=== PATIENT | female | born 1945 | race Caucasian/White ===

== ENCOUNTER 2022-11-30 12:21 | Inpatient (IN) | payer MEDICARE, OTHER ==
[~2022-11-30] VITALS: Ht 157.5 cm; Wt 45.8 kg
[2022-11-30 12:55] LABS: HEMATOCRIT 38.3 % (31.2-41.9); MEAN CORPUSCULAR HEMOGLOBIN 30.8 uug (24.7-32.8); MEAN CORPUSCULAR VOLUME 93.5 fL (75.5-95.3); PLATELET COUNT (AUTO) 298 K/uL (179-408)
[2022-11-30] MEDS ORDERED: CLOP75TA15 PO (13:01)
[2022-11-30] MEDS ORDERED: ALPR0.5T8 PO (13:01)
[2022-11-30] MEDS ORDERED: VITAMIN D3 PO (13:01)
[2022-11-30] MEDS ORDERED: CARV3.122 PO (13:01)
[2022-11-30] MEDS ORDERED: MESA800T9 PO (13:01)
[2022-11-30] MEDS ORDERED: SIMV-49 PO (13:01)
[2022-11-30] MEDS ORDERED: RANO10003 PO (13:01)
[2022-11-30 13:19] LABS: ETHANOL < 3 MG/DL (0-0)
[2022-11-30 13:21] LABS: ALANINE AMINOTRANSFERASE 16 U/L (14-59); ALKALINE PHOSPHATASE 63 U/L (50-136); ASPARTATE AMINOTRANSFERASE 15 U/L (15-37); BILIRUBIN,DIRECT 0.1 mg/dL (0.0-0.2); BILIRUBIN,TOTAL 0.4 mg/dL (0.2-1.0); CARBON DIOXIDE 30 mmol/L (21-32); CHLORIDE 106 mmol/L (98-107); CREATININE 0.8 mg/dL (0.6-1.3); GLUCOSE 123 mg/dL (74-106); POTASSIUM 4.5 mmol/L (3.5-5.1); TOTAL PROTEIN, SERUM 7.4 g/dL (6.4-8.2); UREA NITROGEN, BLOOD 19 mg/dL (7-18)
[2022-11-30 14:19] LABS: *BLOOD, URINE NEGATIVE (NEGATIVE); *CLARITY,URINE CLEAR (CLEAR); *COLOR,URINE AMBER (YELLOW); *KETONES,URINE 1+ (NEGATIVE); *UROBILINOGEN,URINE 0.2 E.U./dl (NORMAL); LEUKOCYTE ESTERASE ,URINE NEGATIVE (NEGATIVE); NITRITE, URINE NEGATIVE (NEGATIVE); PH,URINE 5.5 (5.0-8.0); UGLUCOSE NEGATIVE (NEGATIVE)
[2022-11-30 14:34] LABS: *AMPHETAMINE, URINE NEGATIVE (NEGATIVE); *CANNABINOID, URINE NEGATIVE (NEGATIVE); *COCCAINE, URINE NEGATIVE (NEGATIVE); *PHENCYCLIDINE SCREEN,URINE NEGATIVE (NEGATIVE)
[2022-11-30 15:01] LABS: *BILIRUBIN,URIN 2+ (NEGATIVE)
[2022-11-30 15:08] LABS: ACETAMINOPHEN < 2.0 ug/mL (10-30)
[2022-11-30] MEDS ORDERED: IV NORMAL SALINE 1000 ML BAG IV ONE (15:15)
[2022-11-30 17:26] LABS: RBC,URINE 0-3 /HPF (0-3); WBC,URINE 0-3 /HPF (0-3)
[2022-11-30 18:52] VITALS: BP 151/77
[2022-11-30 20:27] VITALS: BP 119/70
[2022-12-01] MEDS ORDERED: ACETAMINOPHEN 650 MG SUPP.RECT RC PRN (00:30)
[2022-12-01] MEDS ORDERED: MELATONIN 3 MG TABLET PO PRN (00:30)
[2022-12-01] MEDS ORDERED: MAGNESIUM HYDROXIDE 30 ML LIQUID UDC PO PRN (00:30)
[2022-12-01] MEDS ORDERED: ONDANSETRON 4 MG/2 ML VIAL IV PRN (00:30)
[2022-12-01 04:50] VITALS: BP 135/82
[2022-12-01] MEDS: CLOPIDOGREL 75 MG TABLET PO SCH (08:20)
[2022-12-01] MEDS: CARVEDILOL 3.125 MG TABLET PO SCH (08:20)
[2022-12-01] MEDS ORDERED: VITAMIN D3 PO SCH (09:00)
[2022-12-01] MEDS: MESALAMINE 400 MG CAPSULE.DR PO SCH (09:02)
[2022-12-01 11:54] VITALS: BP 109/69
[2022-12-01] MEDS ORDERED: CHOL200059 PO (13:46)
[2022-12-01] MEDS: CHOLECALCIFEROL 1,000 UNIT TABLET PO SCH (15:33)
[2022-12-01 16:00] VITALS: BP 120/60
[2022-12-01 20:00] VITALS: BP 122/68
[2022-12-01] MEDS: RANOLAZINE 500 MG TAB.ER.12H PO SCH (21:15)
[2022-12-01] MEDS: SIMVASTATIN 40 MG TABLET PO SCH (21:15)
[2022-12-01] MEDS: ALPRAZOLAM 0.5 MG TABLET PO SCH (21:15)
[2022-12-02 04:00] VITALS: BP 118/72
[2022-12-02 06:59] LABS: HEMATOCRIT 38.9 % (31.2-41.9); MEAN CORPUSCULAR HEMOGLOBIN 30.8 uug (24.7-32.8); MEAN CORPUSCULAR VOLUME 93.2 fL (75.5-95.3); PLATELET COUNT (AUTO) 249 K/uL (179-408)
[2022-12-02 08:34] LABS: CARBON DIOXIDE 29 mmol/L (21-32); CHLORIDE 106 mmol/L (98-107); CREATININE 0.8 mg/dL (0.6-1.3); GLUCOSE 104 mg/dL (74-106); POTASSIUM 4.6 mmol/L (3.5-5.1); UREA NITROGEN, BLOOD 29 mg/dL (7-18)
[2022-12-02 08:35] LABS: MAGNESIUM 1.8 mg/dL (1.8-2.4); PHOSPHOROUS 4.2 mg/dL (2.5-4.9)
[2022-12-02 08:46] LABS: THYROID STIMULATING HORMONE 0.933 mIU/mL (0.358-3.740)
[2022-12-02 09:13] LABS: IRON, SERUM 54 ug/dL (50-175)
[2022-12-02] MEDS: CLOPIDOGREL 75 MG TABLET PO SCH (09:22)
[2022-12-02] MEDS: CHOLECALCIFEROL 1,000 UNIT TABLET PO SCH (09:22)
[2022-12-02] MEDS: MESALAMINE 400 MG CAPSULE.DR PO SCH (09:22)
[2022-12-02] MEDS: CARVEDILOL 3.125 MG TABLET PO SCH (09:23)
[2022-12-02] MEDS ORDERED: NICO10CA IH (09:33)
[2022-12-02 11:51] VITALS: BP 110/65
[2022-12-02] MEDS ORDERED: ONDA4VIA23 PO (14:33)
[2022-12-02] MEDS ORDERED: ACET650S13 RC (14:33)
[2022-12-02] MEDS ORDERED: MAGN400O6 PO (14:33)
[2022-12-02] MEDS ORDERED: MELA3TAB41 PO (14:33)
[2022-12-02 15:54] VITALS: BP 125/67
[2022-12-02 20:00] VITALS: BP 123/64
[2022-12-02] MEDS: ALPRAZOLAM 0.5 MG TABLET PO SCH (20:09)
[2022-12-02] MEDS: SIMVASTATIN 40 MG TABLET PO SCH (20:10)
[2022-12-02] MEDS: RANOLAZINE 500 MG TAB.ER.12H PO SCH (20:10)
[2022-12-03 04:00] VITALS: BP 107/64
[2022-12-03] MEDS: MESALAMINE 400 MG CAPSULE.DR PO SCH (08:14)
[2022-12-03] MEDS: CHOLECALCIFEROL 1,000 UNIT TABLET PO SCH (08:14)
[2022-12-03] MEDS: CLOPIDOGREL 75 MG TABLET PO SCH (08:15)
[2022-12-03] MEDS: CARVEDILOL 3.125 MG TABLET PO SCH (08:15)
[2022-12-03 11:14] VITALS: BP 137/60
== END 2022-12-03 15:59 | DRG 92 ==
LOC: ER 12:21 → MEDSURG3 17:12
PROVIDERS: ADMIT Internal Medicine; ATTEND Internal Medicine
PROC: 05HC33Z Insertion of Infusion Device into Left Basilic Vein, Percutaneous Approach (ICD-10-PCS; principal; 2022-11-30)
DX: R27.0 Ataxia, unspecified (principal); A69.20 Lyme disease, unspecified; K50.90 Crohn's disease, unspecified, without complications; G40.802 Other epilepsy, not intractable, without status epilepticus; E86.0 Dehydration; R53.1 Weakness; S89.91XS Unspecified injury of right lower leg, sequela; X58.XXXS Exposure to other specified factors, sequela; Z59.02 Unsheltered homelessness; Z91.81 History of falling; I10 Essential (primary) hypertension; M79.7 Fibromyalgia; I25.2 Old myocardial infarction; I25.10 Atherosclerotic heart disease of native coronary artery without angina pectoris; M06.9 Rheumatoid arthritis, unspecified; F43.10 Post-traumatic stress disorder, unspecified; Z86.73 Personal history of transient ischemic attack (TIA), and cerebral infarction without residual deficits; Z20.822 Contact with and (suspected) exposure to COVID-19; Z79.899 Other long term (current) drug therapy; Z87.440 Personal history of urinary (tract) infections; Z95.5 Presence of coronary angioplasty implant and graft; Z87.891 Personal history of nicotine dependence; Z90.710 Acquired absence of both cervix and uterus; Z79.02 Long term (current) use of antithrombotics/antiplatelets; M47.892 Other spondylosis, cervical region
CPT/HCPCS: 36415; 71045; 83550; 83735; 84100; 84443; 85025; 93005; 93880; A4663; G0378; G0480

== ENCOUNTER 2023-06-14 11:07 | Inpatient (IN) | payer MEDICARE, OTHER ==
[~2023-06-14] VITALS: Ht 157.5 cm; Wt 48.1 kg
[~2023-06-14 11:07] MED LIST: ACET650S13 RC; ALPR0.5T8 PO; CARV3.122 PO; CHOL200059 PO; CLOP75TA15 PO; MAGN400O6 PO; MELA3TAB41 PO; MESA800T9 PO; NICO10CA IH; ONDA4VIA23 PO; RANO10003 PO; SIMV-49 PO
[2023-06-14 11:41] LABS: BASOPHILS % (AUTO) 0.4 % (0.0-2.0); EOSINOPHILS # (AUTO) 0.1 K/uL (0.0-0.7); EOSINOPHILS % (AUTO) 2.4 % (0.0-7.0); HEMOGLOBIN 12.6 g/dL (10.9-14.3); LYMPHOCYTES # (AUTO) 1.3 K/uL (0.8-4.8); LYMPHOCYTES % (AUTO) 21.4 % (20.5-51.5); MEAN CORPUSCULAR HEMOGLOBIN 31.1 uug (24.7-32.8); MEAN CORPUSCULAR HGB CONC 34 g/dL (32.3-35.6); MEAN CORPUSCULAR VOLUME 91.4 fL (75.5-95.3); MONOCYTES # (AUTO) 0.5 K/uL (0.1-1.30); MONOCYTES % (AUTO) 8.8 % (0.0-11.0); NEUTROPHILS # (AUTO) 4.1 K/uL (1.8-8.9); PLATELET COUNT (AUTO) 219 K/uL (179-408); RED BLOOD CELL COUNT(AUTO) 4.05 MIL/uL (3.63-4.92); RED CELL DISTRIBUTION WIDTH 13.3 % (12.3-17.7); WHITE BLOOD COUNT (AUTO) 6.1 K/uL (3.8-11.8)
[2023-06-14 11:43] LABS: DIFFERENTIAL COMMENT 1
[2023-06-14 11:51] LABS: CARBON DIOXIDE 27 mmol/L (21-32); CHLORIDE 102 mmol/L (98-107); CREATININE 0.8 mg/dL (0.6-1.3); GLUCOSE 83 mg/dL (74-106); POTASSIUM 3.8 mmol/L (3.5-5.1); SODIUM SERUM 136 mmol/L (136-145); UREA NITROGEN, BLOOD 16 mg/dL (7-18)
[2023-06-14 12:00] LABS: ALANINE AMINOTRANSFERASE 14 U/L (14-59); ALBUMIN 4.1 g/dL (3.4-5.0); ALKALINE PHOSPHATASE 63 U/L (50-136); ASPARTATE AMINOTRANSFERASE 12 U/L (15-37); BILIRUBIN,DIRECT 0.2 mg/dL (0.0-0.2); BILIRUBIN,TOTAL 0.7 mg/dL (0.2-1.0); TOTAL PROTEIN, SERUM 7.1 g/dL (6.4-8.2)
[2023-06-14] MEDS ORDERED: CYCL30DR EACHEYE (12:46)
[2023-06-14 13:47] LABS: *BILIRUBIN,URIN NEGATIVE (NEGATIVE); *BLOOD, URINE 2+ (NEGATIVE); *CLARITY,URINE SLIGHTLY CLOUDY (CLEAR); *COLOR,URINE YELLOW (YELLOW); *KETONES,URINE 1+ (NEGATIVE); *PROTEIN,URINE NEGATIVE (NEGATIVE); *UROBILINOGEN,URINE 0.2 E.U./dl (NORMAL); LEUKOCYTE ESTERASE ,URINE 1+ (NEGATIVE); NITRITE, URINE POSITIVE (NEGATIVE); PH,URINE 5.5 (5.0-8.0); UGLUCOSE NEGATIVE (NEGATIVE)
[2023-06-14] MEDS ORDERED: NITROFURANTOIN/NITROFURAN MAC 100 MG CAPSULE PO ONE ×2 (14:15→14:21)
[2023-06-14 14:19] LABS: BACTERIA,URINE MANY /HPF (NONE SEEN); SQUAMOUS EPITHELIAL CELL,UR MODERATE /HPF (NONE SEEN); WBC,URINE 50-80 /HPF (0-3)
[2023-06-14] MEDS ORDERED: ONDANSETRON 4 MG/2 ML VIAL IV PRN (14:30)
[2023-06-14] MEDS ORDERED: MORPHINE SULFATE 2 MG/1 ML DISP.SYRIN IVP PRN (14:30)
[2023-06-14] MEDS ORDERED: hydrALAZINE HCL 20 MG/1 ML VIAL IV PRN (14:30)
[2023-06-14] MEDS ORDERED: ALPRAZOLAM 0.5 MG TABLET ONE (21:20)
[2023-06-14] MEDS: ALPRAZOLAM 0.5 MG TABLET PO PRN (21:24)
[2023-06-14] MEDS ORDERED: SEVELAMER CARBONATE 800 MG TABLET PO ONE (21:34)
[2023-06-14] MEDS: SIMVASTATIN 40 MG TABLET PO SCH (21:55)
[2023-06-14] MEDS: RANOLAZINE 500 MG TAB.ER.12H PO SCH (21:55)
[2023-06-15] MEDS ORDERED: CEFEPIME HCL 1 G VIAL ONE ×2 (01:41→13:01)
[2023-06-15] MEDS: CEFEPIME HCL 1 G in IV DEXTROSE 5% 50 ML IV SCH ×4 (06:03→22:23)
[2023-06-15 06:47] LABS: BASOPHILS % (AUTO) 0.5 % (0.0-2.0); EOSINOPHILS # (AUTO) 0.2 K/uL (0.0-0.7); EOSINOPHILS % (AUTO) 3.5 % (0.0-7.0); HEMATOCRIT 36.9 % (31.2-41.9); HEMOGLOBIN 12.7 g/dL (10.9-14.3); LYMPHOCYTES # (AUTO) 1.2 K/uL (0.8-4.8); LYMPHOCYTES % (AUTO) 17.6 % (20.5-51.5); MEAN CORPUSCULAR HEMOGLOBIN 31.7 uug (24.7-32.8); MEAN CORPUSCULAR HGB CONC 35 g/dL (32.3-35.6); MEAN CORPUSCULAR VOLUME 91.9 fL (75.5-95.3); MONOCYTES # (AUTO) 0.7 K/uL (0.1-1.30); MONOCYTES % (AUTO) 10.5 % (0.0-11.0); NEUTROPHILS # (AUTO) 4.5 K/uL (1.8-8.9); NEUTROPHILS % (AUTO) 67.9 % (38.5-71.5); PLATELET COUNT (AUTO) 216 K/uL (179-408); RED BLOOD CELL COUNT(AUTO) 4.02 MIL/uL (3.63-4.92); RED CELL DISTRIBUTION WIDTH 13.3 % (12.3-17.7); WHITE BLOOD COUNT (AUTO) 6.6 K/uL (3.8-11.8)
[2023-06-15 07:04] LABS: DIFFERENTIAL COMMENT 1
[2023-06-15 07:12] LABS: ALANINE AMINOTRANSFERASE 21 U/L (14-59); ALKALINE PHOSPHATASE 64 U/L (50-136); ASPARTATE AMINOTRANSFERASE 18 U/L (15-37); BILIRUBIN,TOTAL 0.7 mg/dL (0.2-1.0); CALCIUM 9.3 mg/dL (8.5-10.1); CARBON DIOXIDE 31 mmol/L (21-32); CHLORIDE 104 mmol/L (98-107); CREATININE 0.9 mg/dL (0.6-1.3); GLUCOSE 93 mg/dL (74-106); PHOSPHOROUS 3.9 mg/dL (2.5-4.9); POTASSIUM 3.7 mmol/L (3.5-5.1); SODIUM SERUM 142 mmol/L (136-145); TOTAL PROTEIN, SERUM 7.1 g/dL (6.4-8.2); UREA NITROGEN, BLOOD 18 mg/dL (7-18)
[2023-06-15] MEDS ORDERED: CLOPIDOGREL 75 MG TABLET ONE (08:30)
[2023-06-15] MEDS ORDERED: CHOLECALCIFEROL 1,000 UNIT TABLET ONE (08:31)
[2023-06-15] MEDS ORDERED: MESALAMINE 400 MG CAPSULE.DR PO ONE (08:31)
[2023-06-15] MEDS ORDERED: CARVEDILOL 3.125 MG TABLET ONE (08:31)
[2023-06-15] MEDS ORDERED: HEPARIN SODIUM,PORCINE 5,000 UNITS/ML VIAL ONE (08:41)
[2023-06-15] MEDS: POLYVINYL ALCOHOL OPHT DROPS 15 ML BOTTLE EACHEYE SCH ×2 (08:53→16:16)
[2023-06-15] MEDS: CARVEDILOL 3.125 MG TABLET PO SCH (08:54)
[2023-06-15] MEDS: CHOLECALCIFEROL 1,000 UNIT TABLET PO SCH (08:54)
[2023-06-15] MEDS: MESALAMINE 400 MG CAPSULE.DR PO SCH (08:54)
[2023-06-15] MEDS ORDERED: CARVEDILOL 3.125 MG TABLET PO SCH (09:00)
[2023-06-15] MEDS ORDERED: MESALAMINE 400 MG PO SCH (09:00)
[2023-06-15] MEDS: HEPARIN SODIUM,PORCINE 5,000 UNITS/ML VIAL SQ SCH ×3 (10:00→20:58)
[2023-06-15] MEDS: CLOPIDOGREL 75 MG TABLET PO SCH (10:14)
[2023-06-15] MEDS: ISOSORBIDE MONONITRATE 30 MG TAB.SR.24H PO SCH (10:24)
[2023-06-15 15:18] VITALS: BP 109/64; TEMP 98.1; O2SAT 97
[2023-06-15] MEDS: ACETAMINOPHEN 325 MG TABLET PO PRN (16:11)
[2023-06-15 20:00] VITALS: BP 111/68; TEMP 97.4; O2SAT 95
[2023-06-15] MEDS: SIMVASTATIN 40 MG TABLET PO SCH (20:52)
[2023-06-15] MEDS: RANOLAZINE 500 MG TAB.ER.12H PO SCH (20:53)
[2023-06-15] MEDS: ALPRAZOLAM 0.5 MG TABLET PO PRN (21:12)
[2023-06-16] VITALS: BP 103/55; TEMP 97.8; O2SAT 96
[2023-06-16 04:00] VITALS: BP 109/60; TEMP 97.8; O2SAT 97
[2023-06-16] MEDS: CEFEPIME HCL 1 G in IV DEXTROSE 5% 50 ML IV SCH ×2 (05:37→17:30)
[2023-06-16 08:00] VITALS: BP 137/77; TEMP 97.2; O2SAT 99
[2023-06-16] MEDS: CLOPIDOGREL 75 MG TABLET PO SCH (08:48)
[2023-06-16] MEDS: CHOLECALCIFEROL 1,000 UNIT TABLET PO SCH (08:48)
[2023-06-16] MEDS: ISOSORBIDE MONONITRATE 30 MG TAB.SR.24H PO SCH (08:49)
[2023-06-16] MEDS: CARVEDILOL 3.125 MG TABLET PO SCH (08:49)
[2023-06-16] MEDS: HEPARIN SODIUM,PORCINE 5,000 UNITS/ML VIAL SQ SCH ×2 (08:50→22:19)
[2023-06-16] MEDS: POLYVINYL ALCOHOL OPHT DROPS 15 ML BOTTLE EACHEYE SCH ×2 (08:52→17:27)
[2023-06-16] MEDS: MESALAMINE 400 MG CAPSULE.DR PO SCH (09:29)
[2023-06-16] MEDS: NICOTROL INH SCH ×2 (09:30→17:27)
[2023-06-16] MEDS: ACETAMINOPHEN 325 MG TABLET PO PRN (11:30)
[2023-06-16 11:37] VITALS: BP 102/67; TEMP 98.3; O2SAT 98
[2023-06-16 16:00] VITALS: BP 97/54; TEMP 98.1; O2SAT 98
[2023-06-16] MEDS: SIMVASTATIN 40 MG TABLET PO SCH (22:14)
[2023-06-16] MEDS: RANOLAZINE 500 MG TAB.ER.12H PO SCH (22:14)
[2023-06-16] MEDS: ALPRAZOLAM 0.5 MG TABLET PO PRN (22:26)
[2023-06-17 03:37] VITALS: BP 102/64; TEMP 98.3; O2SAT 98
[2023-06-17] MEDS: CEFEPIME HCL 1 G in IV DEXTROSE 5% 50 ML IV SCH (06:13)
[2023-06-17 08:05] VITALS: BP 127/71; TEMP 97.6; O2SAT 99
[2023-06-17] MEDS: HEPARIN SODIUM,PORCINE 5,000 UNITS/ML VIAL SQ SCH (08:40)
[2023-06-17] MEDS: ISOSORBIDE MONONITRATE 30 MG TAB.SR.24H PO SCH (08:40)
[2023-06-17] MEDS: CARVEDILOL 3.125 MG TABLET PO SCH (08:41)
[2023-06-17] MEDS: CLOPIDOGREL 75 MG TABLET PO SCH (08:41)
[2023-06-17] MEDS: CHOLECALCIFEROL 1,000 UNIT TABLET PO SCH (08:41)
[2023-06-17] MEDS: NICOTROL INH SCH (08:41)
[2023-06-17] MEDS: MESALAMINE 400 MG CAPSULE.DR PO SCH (08:42)
[2023-06-17] MEDS: POLYVINYL ALCOHOL OPHT DROPS 15 ML BOTTLE EACHEYE SCH (08:42)
[2023-06-17] MEDS ORDERED: NITR100C6 PO (09:00)
[2023-06-17] MEDS ORDERED: ISOS30TA86 PO (09:31)
[2023-06-17 11:46] VITALS: BP 135/70; TEMP 97.5; O2SAT 99
== END 2023-06-17 15:00 | DRG 690 ==
LOC: ER 11:07 → TRANSITION 14:25 → MEDSURG3 06-15 13:19 → TELE3 06-15 16:30 → MEDSURG3 06-16 08:11
PROVIDERS: ADMIT Internal Medicine; ATTEND Internal Medicine
DX: N39.0 Urinary tract infection, site not specified (principal); K50.90 Crohn's disease, unspecified, without complications; R62.7 Adult failure to thrive; I25.119 Atherosclerotic heart disease of native coronary artery with unspecified angina pectoris; Z95.5 Presence of coronary angioplasty implant and graft; M35.00 Sjogren syndrome, unspecified; R79.9 Abnormal finding of blood chemistry, unspecified; R53.83 Other fatigue; R53.1 Weakness; G40.909 Epilepsy, unspecified, not intractable, without status epilepticus; Z86.73 Personal history of transient ischemic attack (TIA), and cerebral infarction without residual deficits; Z91.011 Allergy to milk products; Z88.0 Allergy status to penicillin; Z88.8 Allergy status to other drugs, medicaments and biological substances; Z91.018 Allergy to other foods; Z79.02 Long term (current) use of antithrombotics/antiplatelets; I25.2 Old myocardial infarction; I11.0 Hypertensive heart disease with heart failure; I50.9 Heart failure, unspecified; I25.5 Ischemic cardiomyopathy; M79.7 Fibromyalgia; Z79.899 Other long term (current) drug therapy; Z90.710 Acquired absence of both cervix and uterus
CPT/HCPCS: 36415; 70450; 71045; 84100; 84484; 85025; 93005; 93307; A4663; G0378; J0692; J1644